=== PATIENT | male | born 1995 | race Caucasian/White ===

== ENCOUNTER 2016-12-09 13:26 | Inpatient (IN) | payer OTHER ==
[~2016-12-09] VITALS: Ht 190.5 cm; Wt 103.4 kg
[2016-12-09] MEDS ORDERED: FLUO-191 PO (13:59)
[2016-12-09] MEDS ORDERED: LORA2TAB2 PO (13:59)
[2016-12-09 14:14] LABS: BASOPHILS # (AUTO) 0.07 K/uL (0.00-0.20); BASOPHILS % (AUTO) 1.1 % (0.0-2.0); EOSINOPHILS # (AUTO) 0.22 K/uL (0.00-0.70); HEMATOCRIT 44.8 % (41-53); HEMOGLOBIN 14.7 g/dL (13.5-17.5); LYMPHOCYTES # (AUTO) 2.3 K/uL (1.0-4.8); LYMPHOCYTES % (AUTO) 34.2 % (22.0-44.0); MEAN CORPUSCULAR HEMOGLOBIN 29.1 pg (26.0-34.0); MEAN CORPUSCULAR HGB CONC 32.9 G/dL (31.0-37.0); MEAN CORPUSCULAR VOLUME 89 fL (80-100); MONOCYTES # (AUTO) 0.4 K/uL (0.1-1.0); MONOCYTES % (AUTO) 6.4 % (2.0-9.0); NEUTROPHILS # (AUTO) 3.6 K/uL (1.8-7.7); PLATELET COUNT (AUTO) 243 K/uL (150-450); RED BLOOD CELL COUNT(AUTO) 5.05 MIL/uL (4.50-5.90); RED CELL DISTRIBUTION WIDTH 13.9 % (11.5-14.5); WHITE BLOOD COUNT (AUTO) 6.6 K/uL (4.5-11.0)
[2016-12-09 14:22] LABS: ANION GAP 12 mmol/L (8-16); CALCIUM, TOTAL 8.9 mg/dL (8.8-10.5); CARBON DIOXIDE 24 mmol/L (22-29); CHLORIDE 106 mmol/L (98-107); CREATININE 0.89 mg/dL (0.60-1.30); GLOMERULAR FILTR. RATE CALC > 60 mL/min (>60); SODIUM SERUM 142 mmol/L (136-145); UREA NITROGEN, BLOOD 11 mg/dL (7-18)
[2016-12-09 14:30] LABS: ALANINE AMINOTRANSFERASE 22 U/L (12-78); ALBUMIN 4.3 g/dL (3.4-5.0); ASPARTATE AMINOTRANSFERASE 17 U/L (15-37); BILIRUBIN,TOTAL 0.2 mg/dL (0.1-1.0); TOTAL PROTEIN, SERUM 7.4 g/dL (6.4-8.2)
[2016-12-09] MEDS ORDERED: ZOLPIDEM TARTRATE 10 MG TABLET PO PRN (14:45)
[2016-12-09] MEDS: LORazepam 2 MG TABLET PO PRN ×2 (16:09→20:05)
[2016-12-09] MEDS ORDERED: LORazepam 1 MG TABLET PO ONE (16:15)
[2016-12-09] MEDS: HALOPERIDOL 5 MG TABLET PO PRN (20:06)
[2016-12-10 06:56] VITALS: BP 123/72
[2016-12-10 09:30] VITALS: BP 134/75
[2016-12-10] MEDS: HALOPERIDOL 5 MG TABLET PO PRN (10:31)
[2016-12-10] MEDS: LORazepam 2 MG TABLET PO PRN ×2 (10:31→16:11)
[2016-12-10 16:16] VITALS: BP 128/73
[2016-12-10] MEDS ORDERED: INFLUENZA VIRUS VACCINE QVS 2016-17 (3YR+)/PF 60 MCG/0.5 ML SYRINGE IM ONE (16:30)
[2016-12-10] MEDS ORDERED: FLUoxetine HCL 20 MG CAPSULE PO ONE (18:45)
[2016-12-10] MEDS ORDERED: FLUO-191 PO (18:50)
[2016-12-10 18:55] VITALS: BP 128/76
== END 2016-12-10 19:05 | disposition home or self-care (01) | DRG 885 ==
LOC: EMS 13:28 → EEVIPCON 13:28 → EMS 16:53 → AHU 20:46 → B2S 12-10 13:59
PROVIDERS: ADMIT Psychiatry & Neurology Psychiatry; ATTEND Psychiatry & Neurology Psychiatry
DX: F33.2 Major depressive disorder, recurrent severe without psychotic features (principal); R45.851 Suicidal ideations; F10.129 Alcohol abuse with intoxication, unspecified; Z88.0 Allergy status to penicillin; F12.90 Cannabis use, unspecified, uncomplicated; F41.9 Anxiety disorder, unspecified; Z79.899 Other long term (current) drug therapy; Z28.21 Immunization not carried out because of patient refusal
CPT/HCPCS: 99285; G0480

== ENCOUNTER 2017-03-05 01:29 | Inpatient (IN) | payer OTHER ==
[2017-03-05] VITALS (8 sets, daily range): BP systolic 118–143; BP diastolic 69–93
[~2017-03-05] VITALS: Ht 190.5 cm; Wt 106.0 kg
[~2017-03-05 01:29] MED LIST: FLUO-191 PO
[2017-03-05] MEDS ORDERED: OLAN10TA3 PO (01:40)
[2017-03-05] MEDS ORDERED: CLON2 PO (01:40)
[2017-03-05 02:00] LABS: BASOPHILS % (AUTO) 0.2 % (0.0-2.0); EOSINOPHILS % (AUTO) 2.7 % (1.0-6.0); HEMATOCRIT 43.2 % (41-53); HEMOGLOBIN 13.7 g/dL (13.5-17.5); LYMPHOCYTES # (AUTO) 2.5 K/uL (1.0-4.8); LYMPHOCYTES % (AUTO) 22.8 % (22.0-44.0); MEAN CORPUSCULAR HEMOGLOBIN 28.4 pg (26.0-34.0); MEAN CORPUSCULAR HGB CONC 31.8 G/dL (31.0-37.0); MEAN CORPUSCULAR VOLUME 90 fL (80-100); MONOCYTES # (AUTO) 0.4 K/uL (0.1-1.0); NEUTROPHILS # (AUTO) 7.6 K/uL (1.8-7.7); NEUTROPHILS % (AUTO) 70.3 % (40.0-70.0); PLATELET COUNT (AUTO) 253 K/uL (150-450); RED BLOOD CELL COUNT(AUTO) 4.82 MIL/uL (4.50-5.90); RED CELL DISTRIBUTION WIDTH 14.6 % (11.5-14.5); WHITE BLOOD COUNT (AUTO) 10.9 K/uL (4.5-11.0)
[2017-03-05 02:08] LABS: ANION GAP 9 mmol/L (8-16); CALCIUM, TOTAL 8.9 mg/dL (8.8-10.5); CARBON DIOXIDE 30 mmol/L (22-29); CHLORIDE 106 mmol/L (98-107); CREATININE 0.91 mg/dL (0.60-1.30); GLOMERULAR FILTR. RATE CALC > 60 mL/min (>60); POTASSIUM 4.1 mmol/L (3.5-5.1); SODIUM SERUM 145 mmol/L (136-145); UREA NITROGEN, BLOOD 9 mg/dL (7-18)
[2017-03-05 02:15] LABS: ALANINE AMINOTRANSFERASE 20 U/L (12-78); ASPARTATE AMINOTRANSFERASE 15 U/L (15-37); BILIRUBIN,TOTAL 0.2 mg/dL (0.1-1.0); TOTAL PROTEIN, SERUM 7.4 g/dL (6.4-8.2)
[2017-03-05] MEDS ORDERED: OLANZapine 5 MG RAPDIS TABLET PO PRN (02:15)
[2017-03-05] MEDS ORDERED: ZOLPIDEM TARTRATE 10 MG TABLET PO PRN (02:15)
[2017-03-05] MEDS ORDERED: DiphenhydrAMINE HCL 25 MG CAPSULE PO ONE (02:15)
[2017-03-05] MEDS ORDERED: LORazepam 2 MG TABLET PO ONE (02:15)
[2017-03-05 02:17] LABS: APPEARANCE,URINE CLEAR (CLEAR); GLUCOSE, URINE (UA) NEGATIVE (NEGATIVE); KETONES,URINE NEGATIVE (NEGATIVE); LEUKOCYTE ESTERASE ,URINE NEGATIVE (NEGATIVE); OCCULT BLOOD,URINE TRACE (NEGATIVE); PH,URINE 5.5 (5.0-8.0); PROTEIN,URINE NEGATIVE (NEGATIVE)
[2017-03-05 02:19] LABS: ADD UA MICROSCOPIC YES
[2017-03-05 02:27] LABS: CHOL/HDL RATIO 3.8 (4.2-7.3)
[2017-03-05 02:31] LABS: RBC,URINE 0-2 /HPF (0-2); URIC ACID CRYSTALS,URINE Moderate /LPF (None Seen); WBC,URINE 0-2 /HPF (0-5)
[2017-03-05] MEDS: LORazepam 2 MG TABLET PO PRN ×4 (04:05→18:06)
[2017-03-05] MEDS ORDERED: BACITRACIN 28.4 GM OINTMENT TP PRN (08:30)
[2017-03-05] MEDS ORDERED: PETROLATUM,WHITE 71 GM JELLY TP PRN (08:30)
[2017-03-05] MEDS ORDERED: MAGNESIUM HYDROXIDE SUSPENSION 30 ML UDCUP PO PRN (08:30)
[2017-03-05] MEDS ORDERED: LOPERAMIDE HCL 2 MG CAPSULE PO PRN (08:30)
[2017-03-05] MEDS ORDERED: CloNIDine HCL 0.1 MG TABLET PO PRN (08:30)
[2017-03-05] MEDS ORDERED: ACETAMINOPHEN 325 MG TABLET PO PRN (08:30)
[2017-03-05] MEDS ORDERED: BENZOCAINE/MENTHOL LOZENGE MM PRN (08:30)
[2017-03-05] MEDS ORDERED: IBUPROFEN 600 MG TABLET PO PRN (08:30)
[2017-03-05] MEDS ORDERED: MAG HYDROX/AL HYDROX/SIMETH ES 30 ML SUSPENSION UDCUP PO PRN (08:30)
[2017-03-05] MEDS ORDERED: ONDANSETRON HCL 4 MG TABLET PO PRN (08:30)
[2017-03-05] MEDS ORDERED: ALBUTEROL SULFATE HFA 90 MCG/PUFF 8 GM INHALER IH PRN (08:30)
[2017-03-05] MEDS: FISH OIL/OMEGA-3 FATTY ACIDS 500 MG CAPSULE PO SCH (09:31)
[2017-03-05] MEDS ORDERED: OLANZapine 10 MG TABLET PO SCH (21:00)
[2017-03-06 00:30] VITALS: BP 121/63
[2017-03-06 02:27] VITALS: BP 121/70
[2017-03-06 05:34] VITALS: BP 125/78
[2017-03-06 08:10] VITALS: BP 111/62
[2017-03-06] MEDS: FISH OIL/OMEGA-3 FATTY ACIDS 500 MG CAPSULE PO SCH (08:41)
[2017-03-06] MEDS ORDERED: FLUoxetine HCL 20 MG CAPSULE PO SCH (09:00)
== END 2017-03-06 11:15 | disposition home or self-care (01) | DRG 885 ==
LOC: EMS 01:30 → B2S 02:14 → UNDOADMIN 02:14 → B2S 02:47
PROVIDERS: ADMIT Psychiatry & Neurology Psychiatry; ATTEND Psychiatry & Neurology Psychiatry
DX: F33.2 Major depressive disorder, recurrent severe without psychotic features (principal); F10.129 Alcohol abuse with intoxication, unspecified; F60.3 Borderline personality disorder; E78.5 Hyperlipidemia, unspecified; K21.9 Gastro-esophageal reflux disease without esophagitis; G47.00 Insomnia, unspecified; M25.562 Pain in left knee; F12.90 Cannabis use, unspecified, uncomplicated; F29 Unspecified psychosis not due to a substance or known physiological condition; G89.29 Other chronic pain; F41.9 Anxiety disorder, unspecified; R45.87 Impulsiveness; Z88.0 Allergy status to penicillin; Z56.0 Unemployment, unspecified; Z79.899 Other long term (current) drug therapy; Z71.51 Drug abuse counseling and surveillance of drug abuser; Z71.41 Alcohol abuse counseling and surveillance of alcoholic
CPT/HCPCS: 99285; G0480

== ENCOUNTER 2017-07-15 22:57 | Inpatient (IN) | payer OTHER ==
[~2017-07-15] VITALS: Ht 190.5 cm; Wt 104.5 kg
[~2017-07-15 22:57] MED LIST changes: +OLAN10TA3 PO
[2017-07-15 23:25] LABS: BASOPHILS % (AUTO) 0.2 % (0.0-2.0); EOSINOPHILS % (AUTO) 1.4 % (1.0-6.0); HEMATOCRIT 39.8 % (41-53); HEMOGLOBIN 13.5 g/dL (13.5-17.5); LYMPHOCYTES # (AUTO) 3.5 K/uL (1.0-4.8); LYMPHOCYTES % (AUTO) 31.8 % (22.0-44.0); MEAN CORPUSCULAR VOLUME 88 fL (80-100); MONOCYTES # (AUTO) 0.7 K/uL (0.1-1.0); NEUTROPHILS # (AUTO) 6.7 K/uL (1.8-7.7); NEUTROPHILS % (AUTO) 60.6 % (40.0-70.0); PLATELET COUNT (AUTO) 275 K/uL (150-450); RED BLOOD CELL COUNT(AUTO) 4.52 MIL/uL (4.50-5.90); RED CELL DISTRIBUTION WIDTH 12.9 % (11.5-14.5)
[2017-07-15 23:35] LABS: ANION GAP 13 mmol/L (8-16); CALCIUM, TOTAL 9.1 mg/dL (8.8-10.5); CARBON DIOXIDE 24 mmol/L (22-29); CHLORIDE 100 mmol/L (98-107); CREATININE 1.02 mg/dL (0.60-1.30); GLOMERULAR FILTR. RATE CALC > 60 mL/min (>60); POTASSIUM 3.1 mmol/L (3.5-5.1); SODIUM SERUM 137 mmol/L (136-145); UREA NITROGEN, BLOOD 12 mg/dL (7-18)
[2017-07-15 23:41] LABS: ALANINE AMINOTRANSFERASE 18 U/L (12-78); ALBUMIN 4.3 g/dL (3.4-5.0); ASPARTATE AMINOTRANSFERASE 16 U/L (15-37); BILIRUBIN,TOTAL 0.2 mg/dL (0.1-1.0); TOTAL PROTEIN, SERUM 7.3 g/dL (6.4-8.2)
[2017-07-16] MEDS ORDERED: POTASSIUM CHLORIDE 10% 40 MEQ/30 ML LIQUID UDCUP PO ONE
[2017-07-16] MEDS ORDERED: HALOPERIDOL LACTATE 5 MG/ML VIAL IM ONE ×2 (00:30→01:15)
[2017-07-16] MEDS ORDERED: DiphenhydrAMINE HCL 50 MG/ML VIAL IM ONE (00:30)
[2017-07-16] MEDS ORDERED: LORazepam 2 MG/ML VIAL IM ONE ×2 (00:30→01:15)
[2017-07-16] MEDS ORDERED: BUPIVACAINE HCL/PF 0.25% 10 ML VIAL INJ ONE (02:00)
[2017-07-16] MEDS ORDERED: PERTUSS(ACELL),DIPH,TET VAC/PF 0.5 ML VIAL IM ONE (02:00)
[2017-07-16] MEDS ORDERED: BACITRACIN 0.9 GM PACKET OINTMENT TP ONE (02:00)
[2017-07-16] MEDS ORDERED: ALBUTEROL SULFATE HFA 90 MCG/PUFF 8 GM INHALER IH PRN (08:15)
[2017-07-16] MEDS ORDERED: MAG HYDROX/AL HYDROX/SIMETH ES 30 ML SUSPENSION UDCUP PO PRN (08:15)
[2017-07-16] MEDS ORDERED: PETROLATUM,WHITE 71 GM JELLY TP PRN (08:15)
[2017-07-16] MEDS ORDERED: ONDANSETRON HCL 4 MG TABLET PO PRN (08:15)
[2017-07-16] MEDS ORDERED: MAGNESIUM HYDROXIDE SUSPENSION 30 ML UDCUP PO PRN (08:15)
[2017-07-16] MEDS ORDERED: CloNIDine HCL 0.1 MG TABLET PO PRN (08:15)
[2017-07-16] MEDS ORDERED: BENZOCAINE/MENTHOL LOZENGE MM PRN (08:15)
[2017-07-16] MEDS ORDERED: ACETAMINOPHEN 325 MG TABLET PO PRN (08:15)
[2017-07-16] MEDS ORDERED: LOPERAMIDE HCL 2 MG CAPSULE PO PRN (08:15)
[2017-07-16] MEDS ORDERED: IBUPROFEN 600 MG TABLET PO PRN (08:15)
[2017-07-16] MEDS ORDERED: POTASSIUM CHLORIDE 20 MEQ ER TABLET PO ONE (08:15)
[2017-07-16 08:29] LABS: CHOL/HDL RATIO 4.3 (4.2-7.3)
[2017-07-16] MEDS: OMEGA-3/DHA/EPA/FISH OIL 500 MG CAPSULE PO SCH (09:20)
[2017-07-16] MEDS: LORazepam 2 MG TABLET PO PRN ×3 (09:20→20:52)
[2017-07-16] MEDS: BACITRACIN 28.4 GM OINTMENT TP SCH ×2 (09:24→16:22)
[2017-07-16 16:00] VITALS: BP 131/68
[2017-07-16] MEDS: HALOPERIDOL 5 MG TABLET PO PRN (16:22)
[2017-07-16] MEDS: OLANZapine 7.5 MG TABLET PO SCH (20:52)
[2017-07-16] MEDS: ZOLPIDEM TARTRATE 10 MG TABLET PO PRN (20:52)
[2017-07-17 08:00] VITALS: BP 140/75
[2017-07-17] MEDS: HALOPERIDOL 5 MG TABLET PO PRN ×2 (08:55→13:16)
[2017-07-17] MEDS: LORazepam 2 MG TABLET PO PRN ×3 (08:55→18:30)
[2017-07-17] MEDS: OMEGA-3/DHA/EPA/FISH OIL 500 MG CAPSULE PO SCH (08:55)
[2017-07-17] MEDS ORDERED: FLUoxetine HCL 20 MG CAPSULE PO SCH (09:00)
[2017-07-17 09:04] LABS: POTASSIUM 4.1 mmol/L (3.5-5.1); THYROID STIMULATING HORMONE 1.54 uIU/mL (0.36-3.74)
[2017-07-17] MEDS: BACITRACIN 28.4 GM OINTMENT TP SCH ×2 (09:16→17:16)
[2017-07-17 16:00] VITALS: BP 128/70
[2017-07-17] MEDS: ZOLPIDEM TARTRATE 10 MG TABLET PO PRN (20:10)
[2017-07-17] MEDS: OLANZapine 7.5 MG TABLET PO SCH (20:10)
[2017-07-17] MEDS: OLANZapine 5 MG TABLET PO SCH (21:00)
[2017-07-18] VITALS: BP 143/65
[2017-07-18] MEDS: LORazepam 2 MG TABLET PO PRN ×3 (00:24→13:30)
[2017-07-18 08:40] VITALS: BP 118/64
[2017-07-18] MEDS: OXcarbazepine 300 MG TABLET PO SCH ×2 (08:51→16:56)
[2017-07-18] MEDS: BuPROPion HCL 150 MG SR TABLET PO SCH (08:51)
[2017-07-18] MEDS: OMEGA-3/DHA/EPA/FISH OIL 500 MG CAPSULE PO SCH (08:52)
[2017-07-18] MEDS: FLUoxetine HCL 20 MG CAPSULE PO SCH (08:52)
[2017-07-18] MEDS: BACITRACIN 28.4 GM OINTMENT TP SCH ×2 (08:57→17:09)
[2017-07-18 16:05] VITALS: BP 138/78
[2017-07-18] MEDS: OLANZapine 5 MG TABLET PO SCH (20:08)
[2017-07-18] MEDS: ZOLPIDEM TARTRATE 10 MG TABLET PO PRN (20:36)
[2017-07-19 01:36] VITALS: BP 133/69
[2017-07-19] MEDS: OMEGA-3/DHA/EPA/FISH OIL 500 MG CAPSULE PO SCH (08:07)
[2017-07-19] MEDS: BuPROPion HCL 150 MG SR TABLET PO SCH (08:08)
[2017-07-19] MEDS: FLUoxetine HCL 20 MG CAPSULE PO SCH (08:08)
[2017-07-19] MEDS: BACITRACIN 28.4 GM OINTMENT TP SCH (08:08)
[2017-07-19] MEDS: OXcarbazepine 300 MG TABLET PO SCH (08:08)
[2017-07-19 08:23] VITALS: BP 139/85
[2017-07-19] MEDS ORDERED: FLUO-191 PO (09:40)
[2017-07-19] MEDS ORDERED: OXCA300T PO (09:40)
[2017-07-19] MEDS ORDERED: OMEG-135 PO (09:40)
[2017-07-19] MEDS ORDERED: OLAN5TAB40 PO (09:40)
[2017-07-19] MEDS ORDERED: BUPR150SR PO (09:40)
== END 2017-07-19 10:30 | disposition home or self-care (01) | DRG 885 ==
LOC: EMS 22:58 → B3A 07-16 01:54 → B2X 07-18 00:19
PROVIDERS: ADMIT Psychiatry & Neurology Psychiatry; ATTEND Psychiatry & Neurology Psychiatry
PROC: 0HQ1XZZ Repair Face Skin, External Approach (ICD-10-PCS; principal; 2017-07-16)
DX: F33.2 Major depressive disorder, recurrent severe without psychotic features (principal); R45.850 Homicidal ideations; E78.5 Hyperlipidemia, unspecified; E87.6 Hypokalemia; F10.129 Alcohol abuse with intoxication, unspecified; F12.10 Cannabis abuse, uncomplicated; Z71.51 Drug abuse counseling and surveillance of drug abuser; G47.00 Insomnia, unspecified; K59.00 Constipation, unspecified; S01.81XA Laceration without foreign body of other part of head, initial encounter; Z79.899 Other long term (current) drug therapy; W45.8XXA Other foreign body or object entering through skin, initial encounter; Y93.89 Activity, other specified; Y92.89 Other specified places as the place of occurrence of the external cause; Y99.8 Other external cause status; Z88.0 Allergy status to penicillin
CPT/HCPCS: 12013; 82306; 84132; 84443; 90471; 90715; 96372; 99291; G0480; J1200; J1630; J2060; J3490